=== PATIENT | female | born 1985 | race Caucasian/White ===

== ENCOUNTER 2016-12-12 14:40 | Outpatient (CLI) | payer MEDICAID | END 2016-12-12 14:41 | disposition home or self-care (01) | DX: O48.0 Post-term pregnancy (principal); Z3A.41 41 weeks gestation of pregnancy ==

== ENCOUNTER 2020-04-02 15:01 | Outpatient (CLI) | payer MEDICAID ==
--- NOTE | 2020-04-02 16:21 | MRI Report ---
Reason: INTERNAL DERANGEMENT OF RT KNEE Procedure Date: 04/02/2020 Accession Number: [id number] / [id number] Procedure: MRI - Knee RT W/O CPT Code: Final Report FULL RESULT: PROCEDURE: Knee RT W/O INDICATIONS: INTERNAL DERANGEMENT OF RT KNEE TECHNIQUE: Noncontrast sagittal PD fast spin echo and T2 fast spin echo with fat saturation, sagittal 3-D gradient sequence with fat saturation; coronal T1 spin echo and PD fast spin echo with fat saturation, and axial PD fast spin echo with fat saturation through the knee. COMPARISON: None. FINDINGS: Image quality: Diagnostic. Motion artifacts are noted. Menisci: The medial and lateral menisci demonstrate normal morphology and internal signal. The meniscal root ligaments appear intact. Cruciate ligaments: There is thickened anterior cruciate ligament with intrasubstance fluid signal suggestive of sprain/moderate grade intrasubstance partial thickness tear. No full-thickness ACL rupture. Posterior cruciate ligament is intact. Medial structures: The medial collateral ligament appears intact. The posterior oblique ligament, semimembranosus tendon insertions, and oblique popliteal ligament, and meniscocapsular junction appear intact. Visualized portions of the pes anserinus tendons appear normal. No abnormal bursal fluid. Lateral structures: The lateral collateral ligament, long and short heads of the biceps femoris tendon appear intact. The popliteus tendon appears normal; the popliteofibular ligament appears intact. The posterosuperior and anteroinferior popliteomeniscal fascicles appear intact. The arcuate and fabellofibular ligaments appear intact, around the lateral inferior geniculate artery. Iliotibial band appears normal. Anterior structures: The quadriceps and patellar tendons appear intact. Patellar alignment is normal. No femoral trochlear dysplasia or ventral trochlear prominence. No edema in the infrapatellar fat pad. Bones and cartilage: No bone marrow contusions or fractures. 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 Patella cartilage is grossly intact. Nonspecific subcortical cyst formation involving base of tibial spine near ACL insertion is seen. Joint space: There is physiologic knee joint fluid. No Reardon?s cyst. Normal appearing synovial plicae are incidentally noted. IMPRESSION: 1. Suggestion of sprain/low to moderate grade intrasubstance partial thickness tear involving anterior cruciate ligament. No full-thickness ACL rupture. PCL is intact. 2. Mild medial and lateral femoral tibial compartment joint space narrowing and low-grade chondromalacia. No fracture or dislocation. No significant joint effusion. 3. No evidence of focal meniscal tear. Reviewed by: Pk Clinton MD on 04/02/2020 4:19 PM PDT Approved by: Pk Clinton MD on 04/02/2020 4:19 PM PDT Station ID: [id number]
== END 2020-04-02 15:02 | disposition home or self-care (01) ==
LOC: DI 15:01
PROVIDERS: ATTEND Family Medicine
DX: M94.261 Chondromalacia, right knee (principal)

== ENCOUNTER 2020-05-08 12:01 | Outpatient (CLI) | payer MEDICAID ==
--- NOTE | 2020-05-08 15:10 | Ultrasound Report ---
PROCEDURE: OB Detailed Eval INDICATIONS: SUPERVISION OF NORMAL OUTSIDE/PRIOR DATING DATA: Last menstrual period (LMP): Unknown. LMP-based estimated date of delivery (TARA): Unknown. First dating scan (date and location): 05/08/2020. Estimated date of delivery (TRAA) from first dating scan: 09/23/2020. TECHNIQUE: Real-time scanning was performed of the fetus, with image documentation and biometric measurements. COMPARISON: None. FINDINGS: General: A single living intrauterine gestation is present. Presentation: Breech Placenta: Placental position is posterior, without previa. Amniotic fluid index: 13 cm, within normal limits for gestational age. heart rate: 147 beats per minute. Maternal cervical canal: 4.6 cm long; normal length is 2.5 cm or more. biometrics: Biparietal diameter: 4.7 cm 20 weeks 1 day Head circumference: 17.9 cm 20 weeks 2 days Abdominal circumference: 15.8 cm 20 weeks 6 days Femur length: 3.3 cm 20 weeks 2 days Estimated gestational age from initial scan: not applicable. Composite gestational age from present scan: 20 weeks 2 days Estimated weight: 362 g Measurement variability in biometric dating: +/- 10 days from 12-20 weeks gestation, +/- 2 weeks from 20-30 weeks gestation, +/- 3 weeks at 30 weeks gestation or later. Anatomic survey: Neuro: Ventricles are normal at less than 10 mm. Cisterna magna is normal at 3-11 mm. Cerebellum i s normal in size and morphology. Nuchal skin fold: Normal at less than 6 mm between 14 and 20 weeks gestational age. Face: Nose and lips, facial profile are normal. Spine: No evidence for spina bifida. Heart: 4-chambered heart is present, with normal ventricular outflow tracts. Diaphragm: Diaphragm is intact. Stomach: Left-sided stomach is present. Kidneys: No hydronephrosis. Normal is less than 5 mm in 2nd trimester, less than 7 mm in 3rd trimester. Cord: 3 vessel cord has orthotopic insertion. Bladder: Normal in size. Extremities: All 4 extremities are visualized. Miscellaneous: Left ovarian corpus luteal cyst. IMPRESSION: 1. Single live intrauterine with ultrasound gestational age of 20 weeks 2 days correspondin g to ultrasound TARA of 09/18/2020 2. Anatomy is within normal limits. Reviewed by: Xi Sawant MD on 05/08/2020 3:09 PM PDT Approved by: Xi Sawant MD on 05/08/2020 3:09 PM PDT Station ID: [id number]
== END 2020-05-08 12:02 | disposition home or self-care (01) ==
LOC: DI 12:01
PROVIDERS: ATTEND Midwife
DX: Z36.87 Encounter for antenatal screening for uncertain dates (principal)
CPT/HCPCS: 76811

== ENCOUNTER 2022-08-11 08:00 | Outpatient (CLI) | payer MEDICAID ==
--- NOTE | 2022-08-11 15:35 | XRAY Report ---
PROCEDURE: Knee 3 View RT INDICATIONS: RIGHT KNEE PAIN TECHNIQUE: 3 views of the right knee(s) were acquired. COMPARISON: X-ray knee 08/07/2022 FINDINGS: Bones: There are several osseous fragments along the posterior aspect of the tibia best seen on late ral view. This is better visualized on current exam secondary to positioning. No suspicious bony lesi ons. Soft tissues: Mild joint effusion. No suspicious soft tissue calcifications. IMPRESSION: Small dislocations along the posterior tibia best seen on lateral view most suggestive o f avulsion fractures. No definitive tibial plateau fractures identified on frontal view. However, ivania rt interval x-ray follow-up is recommended and CT scan if concern persists for further evaluation. Reviewed by: Xi Sawant MD on 08/11/2022 3:34 PM PDT Approved by: Xi Sawant MD on 08/11/2022 3:34 PM PDT Station ID: [id number]
== END 2022-08-11 23:59 | disposition home or self-care (01) ==
LOC: DI.WOS 08:00
PROVIDERS: ATTEND Physician Assistant
DX: M25.561 Pain in right knee (principal)

== ENCOUNTER 2022-09-15 11:49 | Outpatient (CLI) | payer MEDICAID ==
--- NOTE | 2022-09-16 11:12 | MRI Report ---
PROCEDURE: KNEE WO - RT INDICATIONS: INJURY TO MUSCLE OR TENDON TECHNIQUE: Noncontrast sagittal PD fast spin echo and T2 fast spin echo with fat saturation, sagittal 3-D gradie nt sequence with fat saturation; coronal T1 spin echo and PD fast spin echo with fat saturation, and axial PD fast spin echo with fat saturation through the knee. COMPARISON: X-ray right knee, 08/11/2010 20/2 and 08/07/2010 22. MRI right knee without, 04/02/2020. FINDINGS: Image quality: Excellent. Menisci: The medial meniscus demonstrates normal morphology and internal signal. There is intrasubst ance degeneration of the anterior horn the lateral meniscus. The meniscal root ligaments appear inta ct. Cruciate ligaments: Chronic thickening and striated appearance of the anterior cruciate ligament, lik gopal secondary to mucoid degeneration. A differential diagnosis is chronic tear/scarring. Posterior cr uciate ligament is intact. Medial structures: The medial collateral ligament appears intact. The semimembranosus tendon insert ions, and meniscocapsular junction appear intact. Visualized portions of the pes anserinus tendons a ppear normal. No abnormal bursal fluid. Lateral structures: The lateral collateral ligament, long and short heads of the biceps femoris tend on appear intact. There is high-grade partial tear of the popliteus tendon at the musculotendinous ju nction with associated muscle strain (series 15 image 10; series 6 image 31). Iliotibial band appear s normal. Anterior structures: The quadriceps and patellar tendons appear intact. Mild quadriceps and patella r tendinitis. Patellar alignment is normal. No femoral trochlear dysplasia or ventral trochlear prom inence. No edema in the infrapatellar fat pad. Bones and cartilage: There is a mildly displaced fracture of the posterior aspect of the lateral tibi al plateau with associated marrow edema. There is tricompartmental cartilage thinning and fibrillatio n. Joint space: There is large knee joint effusion. There is a small Reardon's cyst. Normal appearing sy novial plicae are incidentally noted. IMPRESSION: 1. Mildly displaced fracture in the posterior aspect of the lateral tibial plateau. 2. Mucoid degeneration versus chronic partial tear/scarring of ACL. 3. Intrasubstance degeneration of the anterior horn the lateral meniscus. 4. High-grade partial tear of the popliteus tendon at musculotendinous junction with associated muscl e strain. 5. Large knee joint effusion. 6. Tricompartmental cartilage thinning and fibrillation. Reviewed by: Dione Dee MD on 09/16/2022 11:11 AM PST Approved by: Dione Dee MD on 09/16/2022 11:11 AM PST Station ID: [id number]
== END 2022-09-15 11:50 | disposition home or self-care (01) ==
LOC: DI 11:49
PROVIDERS: ATTEND Physician Assistant
DX: S82.141A Displaced bicondylar fracture of right tibia, initial encounter for closed fracture (principal); S86.821A Laceration of other muscle(s) and tendon(s) at lower leg level, right leg, initial encounter; M25.461 Effusion, right knee; M94.261 Chondromalacia, right knee

== ENCOUNTER 2022-10-04 16:19 | Outpatient (CLI) | payer MEDICAID ==
--- NOTE | 2022-10-04 15:28 | XRAY Report ---
PROCEDURE: Knee 4 View RT INDICATIONS: RIGHT KNEE FRACTURE TECHNIQUE: 5 views of the right knee(s) were acquired. COMPARISON: MRI dated 09/15/2022; plain films dated 08/11/2022 and 08/07/2022 FINDINGS: Bones: Moderately displaced fracture of the lateral tibial plateau posteriorly is present, as before . No suspicious bony lesions. Soft tissues: No joint effusion. No suspicious soft tissue calcifications. IMPRESSION: Lateral tibial plateau fracture, as before. Reviewed by: Mati Suero MD on 10/04/2022 3:26 PM PST Approved by: Mati Suero MD on 10/04/2022 3:26 PM PST Station ID: [id number]
== END 2022-10-04 16:20 | disposition home or self-care (01) ==
LOC: DI.WOS 16:19
PROVIDERS: ATTEND Orthopaedic Surgery
DX: S82.141A Displaced bicondylar fracture of right tibia, initial encounter for closed fracture (principal)